=== PATIENT | female | born 1975 | race African-American/Black ===

== ENCOUNTER 2018-10-28 07:59 | Day surgery (SDC) | payer OTHER ==
[2018-10-15 15:33] LABS: Absolute Monocytes 0.2 K/uL (0.1-1.3); Absolute Neutrophil 0.9 K/uL (1.8-8.0); Basophils % 0.7 % (0-1.3); Eosinophils % 0.2 % (0-4.4); Hematocrit 32.3 % (36.0-45.0); Lymphocytes % 46.1 % (15.3-44.8); MPV 9.2 fL (7.6-11.3); Monocytes % 10.5 % (3.3-12.3); RBC Red Blood Cell Count 3.61 M/uL (3.86-4.86)
[2018-10-15 16:09] LABS: Blood Morphology Comment NOT SEEN (NOT SEEN); Platelet Estimate ADEQ
[2018-10-23 16:09] LABS: Absolute Lymphocytes (CBC) 1.2 K/uL (0.7-4.9); Absolute Monocytes 0.2 K/uL (0.1-1.3); Absolute Neutrophil 0.8 K/uL (1.8-8.0); Eosinophils % 0.3 % (0-4.4); Hematocrit 33.5 % (36.0-45.0); Lymphocytes % 52.5 % (15.3-44.8); MPV 9.1 fL (7.6-11.3); Monocytes % 11.1 % (3.3-12.3); RBC Red Blood Cell Count 3.75 M/uL (3.86-4.86)
[2018-10-23 17:31] LABS: Blood Morphology Comment NOT SEEN (NOT SEEN); Platelet Estimate ADEQ
[2018-10-28 08:16] LABS: Specific Gravity >= 1.030 (1.005-1.030)
[2018-10-28] MEDS ORDERED: Ringers Lactate 1,000 ML IV ONE ×2 (08:34→13:51)
[2018-10-28] MEDS ORDERED: CEFAZOLIN/SWI 1gm 1 GM/10 ML SYR ONE (08:35)
[2018-10-28 08:45] VITALS: O2SAT 100
[2018-10-28] MEDS ORDERED: PROPOFOL 200 MG/20 ML VIAL IV ONE (11:08)
[2018-10-28] MEDS ORDERED: FENTANYL CITR 100 MCG/2 ML ONE ×2 (11:08→13:49)
[2018-10-28] MEDS ORDERED: MIDAZOLAM HCL 2 MG/2 ML INJ ONE (11:09)
[2018-10-28] MEDS ORDERED: LIDOCAINE 2% MPF 5 ML VIAL ONE (11:10)
[2018-10-28] MEDS ORDERED: ONDANSETRON 4 MG/2 ML VIAL ONE ×2 (11:11→16:17)
[2018-10-28] MEDS ORDERED: ROCURONIUM 50 MG/5 ML VIAL IV ONE (11:12)
[2018-10-28] MEDS: CEFAZOLIN/SWI 1gm 1 GM/10 ML SYR ONE ×2 (11:53→11:55)
[2018-10-28] MEDS ORDERED: VASOPRESSIN 20 UNIT/ML VIAL ONE (12:08)
[2018-10-28] MEDS ORDERED: NEOSTIGMINE 1 MG/ML -10 ML VIAL ONE (14:14)
[2018-10-28] MEDS ORDERED: GLYCOPYRROLATE 0.2 MG/ML SYR ONE ×2 (14:14)
[2018-10-28] MEDS: HYDROMORPHONE HCL 1 MG/ML INJ ONE ×4 (14:52→15:21)
[2018-10-28 16:20] VITALS: TEMP 97.2
[2018-10-28] MEDS ORDERED: HYDROCODONE/APAP 5/325 MG TAB ONE (17:35)
[2018-10-28 18:13] VITALS: BP 101/66
--- NOTE | 2018-10-29 08:07 | OP ---
Date of Procedure: 10/28/2018 Surgeon: Radha Lafleur MD Compensation Manager: Theresa Magana. Preoperative Diagnoses: 1.Menorrhagia, excessive periods with . 2.Right ovarian mass 4.8 cm ad 3.2 cm. Two cysts that were measured a while ago and on repeat ultra sound, no cysts were seen. Desired permanent sterilization due to the fact that she is having an abl ation. Postoperative Diagnoses: 1.Menorrhagia, excessive periods with . 2.Right ovarian mass 4.8 cm ad 3.2 cm. Two cysts that were measured a while ago and on repeat ultra sound, no cysts were seen. Desired permanent sterilization due to the fact that she is having an abl ation. 3.Bilateral hematosalpinx and endometrioma on the left ovary. 4.Bilateral very dense tubo-ovarian adhesions, pelvic adhesions, adhesions of the uterus to the ante rior abdominal wall and to the omentum, and omental adhesions to the anterior abdominal wall. Procedures Performed: 1.Diagnostic hysteroscopy, endometrial ablation with Dyer ThermAblator (HTA). 2.Diagnostic laparoscopy, bilateral salpingectomy, bilateral ovariolysis and extensive lysis of adhe sions before the case was started. Estimated Blood Loss: Minimal. Specimens: Bilateral tubes, left ovary along with endometrioma. Complications: None. Drains: None. Condition: The patient's condition is stable. Findings: Bilateral hematosalpinx was visualized. There were dense bilateral ovarian adhesions to t he bowel, to the posterior wall of the uterus, and the posterior broad ligament, as well as to the po sterior cul-de-sac, lateral hamilton. All these adhesions of the ovary had to be released in order for me to dissect the tube off the ovary. On the left side, there appeared to be an endometrioma that wa s deep seated and after it was removed, the ovary on this side was bleeding at the level of the entry of the infundibulopelvic ligament , which is the main source of blood supply to the ovary, so the ovary on the left had to be removed. There was only a small amount of ovarian tissue left af ter the removal of the endometrioma. All adhesions of the uterus, posterior cul-de-sac, bowel, were all taken down. The omental adhesions were also taken down and the anatomy restored. The right ovary appeared to be completely unremarkable and intact, with blood supply intact as well, so it was left in place for hormonal function. After the patient was evaluated outpatient about 2 years ago, she was consented for an ablation. She had 2 ovarian cysts on the right side 4.8 cm and 3.2 cm, plan was to remove these. However, she had leukocytopenia and on further evaluation it took her to see Dr. Garcia, the back shoe operator as well as Dr Landry London who is her primary care provider. Finally after a year and a half, the patient came back w [facility] to proceed with the surgery as planned since she has become anemic since then due to her heavy bleeding. She had evaluation of the endometrium in the past, which was negative for (endometrial in traepithelial neoplasia) EIN or ESC (endometrial serous carcinoma). Her options were reviewed as a M shahla or ablation. Discussed about removal of the uterus per patient's request, but this was too inv asive before these two fail; that would not be advisable in the absence of any atypia or malignancy. The patient understood, a repeat ultrasound was performed, and the ovarian cyst on the right side amanda d resolved. The patient was then consented for an ablation. Understanding the benefits and risks an d risk of failure, also discussed about the need for permanent control in place. She had an ec topic for which she presumed that she had a left salpingectomy. However, she needed perman ent sterilization, as there was no ovary to have a vasectomy, so she wanted to proceed with a bilate ral tubal ligation and this was discussed with her and bilateral salpingectomy according to the guide lines for risk reduction of ovarian cancer was discussed and the patient was brought to the OR. Description Of Procedure: After informed consent was verified, the patient was brought to the OR, 2 g of Ancef were given preop. Then we made sure that the patient is positioned on the operating table in a supine fashion. General anesthesia was given. She was placed in a dorsal lithotomy position u [facility]. Arms were tucked by the side. The abdomen, vulva, vagina, and perineum were pr epped and draped in a sterile fashion. A Hoover was placed to drain the bladder. A speculum was place d to expose the cervix. Anterior lip was grasped with 2 Allis clamps. The cervical canal was entere d with the help of a hysteroscope with on top of it. After entry directly into the uterin e cavity, there was a tiny polyp that had been scraped off with the tip of the scope. The endometriu m appeared to be unremarkable. After the tip of the scope was centered in the uterine cavity, the Al lis was clipped onto the sheath. The posterior fornix was packed with 2 Ray-Tecs. The Morrow speculum was left in place. Cavity integrity test was done, and after this was passed, the HTA ablation cycl e was started and a complete heating cycle with 10 minute ablation cycle and 1.5 minute cooling cycle were conducted without any interruption or fluid loss. There was excellent ablation effect after th oroughly irrigating and suctioning the uterine cavity. Pictures were taken of the ablation site. On ce the cycle was completed ablated, pictures were taken. The Allis clamp was disengaged from the she ath. The scope was removed. Diagnostic VCare was introduced into the uterus. All the clamps were r emoved and the Ray-Tecs from the posterior fornix were removed. This area was then draped after a Fo barry was connected to a drainage bag. A 1 cm infraumbilical incision was made with a scalpel using the open laparoscopy technique. The fasc ia was incised, tagged with 0 Vicryl sutures. The S retractors placed into the peritoneal cavity. H asson was introduced. Site of entry was checked and was unremarkable. The patient was placed in Baron n[place] position. There were adhesions right inferior to the placement of the umbilical trocar al l the way down to the level of the bladder. Then adhesions were present at the sigmoid colon up to t he anterior abdominal wall. These were well visualized by placing in the left lower quadrant 5 mm po rt and a 5 mm camera through here. Then with the help of the LigaSure the adhesions were taken down f rom the left port as well as the right port through the center port, and once the entire omental adhe sions were taken down with the help of the bipolar LigaSure, then the rest of the adhesions from the sigmoid were taken down with the help of the LigaSure only with a cutting mode. Once these were rele ased, then thorough inspection of the pelvic cavity was conducted. No evidence of any cyst. However , bilateral hydrosalpinges were identified. The right 1 was completely matted together with the ovar y, whereas the left 1 had an endometrioma and it was extremely scarred. There was a distal salpingec lamar, however, the tube was still present and dilated, the right more than the left. . A 5-mm left lower quadrant and 5-mm suprapubic ports were placed under direct vision. All the adhesi ons were taken down systematically from the pelvic cavity. After the ovaries were released from the lateral wall, posterior broad ligament, uterus and sigmoid colon, normal anatomy was restored. Howev er, the hydrosalpinx on the right side was completely attached and the fimbriated end was clamped, so plan was to separate and create a plane between the mesovarian and the mesosalpinx. This was comple tely taken down with the help of the LigaSure. Once the entire tube was freed up, the tube was taken down on the left side and removed. At this point, the ovarian endometrioma was very obvious and was scarred, so a plan was made to dissect this off the lateral wall and once this was done, the ovarian cyst was removed with the help of the LigaSure as well as pickups. They were atraumatic. Once the entire cyst of the endometrioma was peeled off, there was very small amount of ovarian tissue left an d this was adherent to the mesosalpinx and the utero-ovarian ligament. The incision of the IP ligame nt was bleeding despite our efforts to cauterize this with bipolar. The best thing was to remove the entire ovarian tissue, so that there could be good hemostasis. Once the utero-ovarian ligament was taken down from medial to lateral, the ovarian pedicle was taken down, then the infundibulopelvic lig ament was taken down with the help of the LigaSure, cauterized x2 and removed. These were placed in t he anterior shelf, then on the opposite side, the tube was released and taken down with the help of t he LigaSure and the entire tube was dissected and kept in the anterior cul-de-sac. There was a small ovarian cyst on the right side that was also teased out for removal as a specimen. Once all these w ere placed in the anterior cul-de-sac, thorough irrigation and suction was performed. There was exce llent hemostasis. More than 50% of the case was taking down the adhesions the 10-mm camer a was changed to a 5. A 10-mm bag was placed. All specimens were placed in and removed. All trocar s were removed, gas was then desufflated. After thorough irrigation and suction were performed, no e vidence of any trauma on removing the trocar sites visibly. Then S retractors were placed after the Ubaldo was removed and the fascial edges were made sure that they were approximated properly with 0 V icryl stitches. The tagged sutures were tied on both ends to complete the closure. Subcutaneous 0 V icryl stitch was placed. The skin was closed with the help of interrupted 4-0 Vicryl. The patient w as cleaned up. Instrument, needle, and sponge counts were done and were correct at the end of the ca se. She was recovered from anesthesia and taken to PACU in stable condition. Tristan and Kiko were r emoved. She wished to go home the same day. VANITA/QUE Voice ID: [id number] Report ID: [id number]
== END 2018-10-28 18:10 | disposition home or self-care (01) ==
LOC: OR 07:59
PROVIDERS: ATTEND Obstetrics & Gynecology
PROC: 0UT14ZZ Resection of Left Ovary, Percutaneous Endoscopic Approach (ICD-10-PCS; 2018-10-28)
PROC: 0U5B8ZZ Destruction of Endometrium, Via Natural or Artificial Opening Endoscopic (ICD-10-PCS; 2018-10-28)
PROC: 0UT74ZZ Resection of Bilateral Fallopian Tubes, Percutaneous Endoscopic Approach (ICD-10-PCS; principal; 2018-10-28 10:30)
DX: N83.12 Corpus luteum cyst of left ovary (principal); N70.11 Chronic salpingitis; N73.6 Female pelvic peritoneal adhesions (postinfective); N92.0 Excessive and frequent menstruation with regular cycle; N83.6 Hematosalpinx; N80.1 Endometriosis of ovary; D64.9 Anemia, unspecified; I10 Essential (primary) hypertension; Z79.899 Other long term (current) drug therapy
CPT/HCPCS: 36415; 81025; 85025; 86850; 86900; 86901; 88305; J0690; J1170; J2250; J2405; J2704; J2710; J3010

== ENCOUNTER 2024-12-16 10:37 | Emergency (ER) | payer OTHER ==
[2024-12-16] MEDS ORDERED: METHYLPREDNISOLONE 125 MG INJ ONE (11:09)
[2024-12-16] MEDS ORDERED: IPRATROPIUM BROM 0.5MG/2.5ML ONE (11:09)
[2024-12-16] MEDS ORDERED: ALBUTEROL 2.5 MG/3 ML NEB SOL ONE (11:09)
[2024-12-16] MEDS ORDERED: KETOROLAC 30 MG/ML INJ ONE (11:09)
[2024-12-16 11:24] LABS: Absolute Lymphocytes (CBC) 0.7 K/uL (0.7-4.9); Absolute Monocytes 0.5 K/uL (0.1-1.3); Absolute Neutrophil 2.2 K/uL (1.8-8.0); Basophils % 0.6 % (0-1.3); Eosinophils % 0.6 % (0-4.4); Hematocrit 36.7 % (36.0-45.0); Hemoglobin 12.6 g/dL (12.0-15.0); Lymphocytes % 21.7 % (15.3-44.8); MCH 28.6 pg (27.0-35.0); MCHC 34.2 g/dL (32.0-36.0); MCV 83.4 fL (80-100); MPV 8.4 fL (7.6-11.3); Monocytes % 13.4 % (3.3-12.3); Neutrophils % 63.7 % (41.7-73.7); Nucleated Red Blood Cells % 0.1 % (0-0); Platelets 168 thou/uL (152-406); Red Cell Distribution Width 14.2 % (12.1-15.2)
[2024-12-16 11:44] LABS: ALT/SGPT 19 U/L (13-56); AST/SGOT 17 U/L (15-37); Albumin 3.7 g/dL (3.4-5.0); Albumin/Globulin Ratio 0.9 (1.1-1.8); Alkaline Phosphatase 64 U/L (45-117); Anion Gap 11.8 mEq/L (5.0-15.0); BUN Blood Urea Nitrogen 17 mg/dL (7-18); Bicarbonate 25 mEq/L (21-32); Bilirubin Total 0.2 mg/dL (0.2-1.0); Globulin 4.3 g/dL (2.3-3.5); Glomerular Filtration Rate 76 ml/min (=/>90); Glucose Level 82 mg/dL (74-106); NT PRO-BNP 49 pg/mL (<125); Potassium 3.8 mEq/L (3.5-5.1); Sodium Level 137 mEq/L (136-145)
[2024-12-16 11:56] LABS: Influenza A Ag Negative; Influenza B Ag Negative
[2024-12-16 11:57] LABS: SARS-CoV-2 Antigen Rapid Res Positive (Negative)
[2024-12-16 12:05] LABS: Bilirubin Direct < 0.2 mg/dL (0-0.2); Troponin High Sensitivity < 3.0 pg/mL (<58.9)
--- NOTE | 2024-12-16 12:25 | RAD REPORT ---
EXAMINATION: ONE VIEW CHEST XR CLINICAL INDICATION: Female, 49 years old.,DYSPNEA TECHNIQUE: Frontal chest projection is submitted. Examination is limited by patient positioning and t echnique. COMPARISON: No prior exam. FINDINGS: The lungs are well inflated and clear. No pneumothorax or sizable effusion. The heart is normal in s ize. Mediastinal contours are unremarkable. IMPRESSION: No acute intrathoracic abnormalities.
--- NOTE | 2024-12-16 12:39 | ER ---
Nurse's Notes [facility] Name: Therese Rojo Age: 49 yrs Sex: Female : 1975 Arrival Date: 12/16/2024 Time: 10:37 Bed 15 Private MD: Diagnosis: COVID-19 Presentation: 12/16 10:49 Chief complaint: Patient states: productive cough, SOB, congestion, chills, body aches, me1 back pain and BURIDCK. Pain level 8/10 that started Saturday. Denies fever. Coronavirus screen: Vaccine status: Patient reports being unvaccinated. Ebola Screen: No symptoms or risks identified at this time. Initial Sepsis Screen: Does the patient meet any 2 criteria? HR > 90 bpm. Does the patient have a suspected source of infection? No. Patient's initial sepsis screen is negative. Risk Assessment: Do you want to hurt yourself or someone else? Patient reports no desire to harm self or others. Onset of symptoms was December 13, 2024. 10:49 Method Of Arrival: Ambulatory co1 10:49 Acuity: ARMANDO 3 me1 Triage Assessment: 10:55 Headache History: The patient has had previous headaches and this one is similar to me1 previous episodes. General: Appears uncomfortable, ill, well groomed, well developed, well nourished, Behavior is calm, cooperative, appropriate for age. Pain: Complains of pain in head and back Pain does not radiate. Pain currently is 8 out of 10 on a pain scale. Quality of pain is described as sharp, Pain began 2-3 days ago. Is continuous. Pain: Also complains of shortness of breath. EENT: No signs and/or symptoms were reported regarding the EENT system. Neuro: Level of Consciousness is awake, alert, obeys commands, Oriented to person, place, time, situation, Appropriate for age. Neuro: Reports headache. Cardiovascular: Patient's skin is warm and dry. Respiratory: Reports shortness of breath on exertion Airway is patent Trachea midline Respiratory effort is even, unlabored, Respiratory pattern is regular, symmetrical. GI: No signs and/or symptoms were reported involving the gastrointestinal system. : No signs and/or symptoms were reported regarding the genitourinary system. Derm: Skin is intact, is healthy with good turgor, Skin is pink, warm \T\ dry. Musculoskeletal: No signs and/or symptoms reported regarding the musculoskeletal system. 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 - Infectious Disease History:: Denies. - Social history:: Smoking status: Patient denies any tobacco usage or history of. - Family history:: not pertinent. Screenin:33 [facility] ED Fall Risk Assessment (Adult) History of falling in the last 3 months, db including since admission No falls in past 3 months (0 pts) Confusion or Disorientation No (0 pts) Intoxicated or Sedated No (0 pts) Impaired Gait No (0 pts) Mobility Assist Device Used No (0 pt) Altered Elimination No (0 pt) Score/Fall Risk Level 0 - 2 = Low Risk Oriented to surroundings, Maintained a safe environment. Abuse screen: Denies threats or abuse. Denies injuries from another. Nutritional screening: No deficits noted. Tuberculosis screening: No symptoms or risk factors identified. Assessment: 11:18 Reassessment: Patient appears in no apparent distress at this time. Patient and/or db family updated on plan of care and expected duration. Pain level reassessed. Patient is alert, oriented x 3, equal unlabored respirations, skin warm/dry/pink. General: Appears in no apparent distress. comfortable, Behavior is calm, cooperative. Pain: Complains of pain in back and head. Neuro: Level of Consciousness is awake, alert, obeys commands, Oriented to person, place, time, situation. Respiratory: Airway is patent Respiratory effort is even, unlabored, Respiratory pattern is regular, symmetrical. Vital Signs: 10:49 BP 138 / 96; Pulse 97; Resp 17; Temp 98; Pulse Ox 100% ; Weight 84.82 kg; Height 5 ft. me1 3 in. ; Pain 8/10; 11:16 BP 124 / 79; Pulse 79; Resp 16; Pulse Ox 98% ; db 11:30 BP 124 / 79; Pulse 87; Resp 16; Pulse Ox 98% ; db 12:30 BP 138 / 86; Pulse 80; Resp 16; Temp 98.6; Pulse Ox 100% on R/A; dd2 10:49 Body Mass Index 33.13 (84.82 kg, 160.02 cm) me1 10:49 Pain Scale: Adult me1 ED Course: 10:40 Patient arrived in ED. mr 10:42 Lars Kirkland MD is Attending Physician. rt 10:52 Triage completed. me1 10:52 Arm band placed on Patient placed in waiting room. me1 11:04 Rita French, RN is Primary Nurse. db 11:15 COVID-19 Ag + Flu A+B Ag Sent. bc6 11:16 Basic Metabolic Panel Sent. bc6 11:16 CBC with Diff Sent. bc6 11:16 LFT's Sent. bc6 11:16 NT PRO-BNP Sent. bc6 11:16 Troponin HS Sent. bc6 11:16 Initial lab(s) drawn, by me, sent to lab. Inserted saline lock: 20 gauge in right bc6 antecubital area, using aseptic technique. Blood collected. Flushed with 10 mL NS. 11:33 Patient has correct armband on for positive identification. Bed in low position. Call db light in reach. Side rails up X 1. Pulse ox on. NIBP on. 12:03 XRAY Chest (1 view) In Process Unspecified. EDMS 13:10 Provided Education on: d/c education. dd2 13:10 No provider procedures requiring assistance completed. IV discontinued, intact, dd2 bleeding controlled, No redness/swelling at site. Pressure dressing applied. Administered Medications: 11:15 Drug: Ketorolac IVP 15 mg IVP once Route: IVP; Site: right antecubital; db 11:49 Follow up: Response: No adverse reaction db 11:16 Drug: MethylPrednisoLONE IVP 125 mg IVP once Route: IVP; Site: right antecubital; db 11:49 Follow up: Response: No adverse reaction db 11:16 Drug: Ipratropium Inhalation Aerosol 0.5 mg Inhalation once Route: Inhalation; db 11:49 Follow up: Response: No adverse reaction db 11:18 Drug: Albuterol Inhalation 2.5 mg Inhalation once Route: Inhalation; db 11:49 Follow up: Response: No adverse reaction db Medication: 13:11 VIS not applicable for this client. dd2 Outcome: 12:39 Discharge ordered by . rt 13:10 Discharged to home ambulatory, dd2 13:10 Condition: stable 13:10 Discharge instructions given to patient, family, Instructed on discharge instructions, follow up and referral plans. medication usage, Demonstrated understanding of instructions, follow-up care, medications, Prescriptions given X 3, 13:11 Patient left the ED. dd2 Signatures: Dispatcher [employer] EDME Therese Scales, Reg Reg mr Rita French, RN RN db Lars Kirkland MD MD rt Irina Maldonado 6 Liz Pineda RN RN me1 ANTHONY ENGLISH RN RN dd2 Corrections: (The following items were deleted from the chart) 10:54 10:49 Chief complaint: Patient states: productive cough, congestion, chills, body me1 aches, back pain and BURDICK. Pain level 8/10 that started Saturday. Denies fever me1
--- NOTE | 2024-12-16 12:39 | EDPHYS ---
Physician Documentation [facility] Name: Therese Rojo Age: 49 yrs Sex: Female : 1975 Arrival Date: 12/16/2024 Time: 10:37 Bed 15 Private MD: ED Physician Lars Kirkland HPI: 12/16 13:48 This 49 yrs old Black Female presents to ER via Ambulatory with complaints of Headache. rt 13:48 Patient presents to the ED with cough, congestion, headache, body aches, nausea since rt Saturday. She took some Vicks to no relief. States that her body aches worsened today prompting her to come for further evaluation. Symptoms are moderate in severity, no other aggravating or alleviating factors.. 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 - Infectious Disease History:: Denies. - Social history:: Smoking status: Patient denies any tobacco usage or history of. - Family history:: not pertinent. ROS: 13:48 Cardiovascular: Negative for chest pain, palpitations, and edema, rt 13:48 Constitutional: Positive for body aches, malaise, 13:48 Respiratory: Positive for cough, shortness of breath, 13:48 Abdomen/GI: Positive for nausea, Negative for abdominal pain, 13:48 Neuro: Positive for headache, Negative for altered mental status, Exam: 13:48 Constitutional: This is a well developed, well nourished patient who is awake, alert, rt and in no acute distress. Head/Face: Normocephalic, atraumatic. Chest/axilla: Normal chest wall appearance and motion. Nontender with no deformity. No lesions are appreciated. Cardiovascular: Regular rate and rhythm with a normal S1 and S2. No gallops, murmurs, or rubs. Normal PMI, no JVD. No pulse deficits. Abdomen/GI: Soft, non-tender, with normal bowel sounds. No distension or tympany. No guarding or rebound. No evidence of tenderness throughout. Skin: Warm, dry with normal turgor. Normal color with no rashes, no lesions, and no evidence of cellulitis. MS/ Extremity: Pulses equal, no cyanosis. Neurovascular intact. Full, normal range of motion. 13:48 ECG was reviewed by the Attending Physician. 13:48 Respiratory: Faint wheezes heard at the apex of both lungs, no crackles, lungs otherwise clear, no respiratory distress, Vital Signs: 10:49 BP 138 / 96; Pulse 97; Resp 17; Temp 98; Pulse Ox 100% ; Weight 84.82 kg; Height 5 ft. me1 3 in. ; Pain 8/10; 11:16 BP 124 / 79; Pulse 79; Resp 16; Pulse Ox 98% ; db 11:30 BP 124 / 79; Pulse 87; Resp 16; Pulse Ox 98% ; db 12:30 BP 138 / 86; Pulse 80; Resp 16; Temp 98.6; Pulse Ox 100% on R/A; dd2 10:49 Body Mass Index 33.13 (84.82 kg, 160.02 cm) me1 10:49 Pain Scale: Adult me1 MDM: 10:53 Medical Screening Exam initiated rt 13:48 Differential diagnosis: Pneumonia, bronchospasm, viral syndrome, flu, COVID. Data rt reviewed: vital signs, nurses notes, lab test result(s), EKG, radiologic studies. I considered the following discharge prescriptions or medication management in the emergency department Medications were administered in the Emergency Department. See MAR. Independent interpretation of the following test(s) in the Emergency Department X-Ray: My interpretation is No infiltrate seen on my interpretation of x-ray images. Care significantly affected by the following chronic conditions: Lupus. Counseling: I had a detailed discussion with the patient and/or guardian regarding the historical points, exam findings, and any diagnostic results supporting the discharge/admit diagnosis, lab results, radiology results, the need for outpatient follow up, to return to the emergency department if symptoms worsen or persist or if there are any questions or concerns that arise at home. Response to treatment: the patient's symptoms have markedly improved after treatment. 12/16 11:04 Order name: Basic Metabolic Panel; Complete Time: 12:06 rt 12/16 11:04 Order name: CBC with Diff; Complete Time: 12:06 rt 12/16 11:04 Order name: LFT's; Complete Time: 12:06 rt 12/16 11:04 Order name: NT PRO-BNP; Complete Time: 12:06 rt 12/16 11:04 Order name: Troponin HS; Complete Time: 12:06 rt 12/16 11:04 Order name: COVID-19 Ag + Flu A+B Ag; Complete Time: 12:06 rt 12/16 11:04 Order name: XRAY Chest (1 view); Complete Time: 12:28 rt 12/16 11:04 Order name: EKG; Complete Time: 11:05 rt 12/16 11:04 Order name: Cardiac monitoring; Complete Time: 11:16 rt 12/16 11:04 Order name: EKG - Nurse/Tech; Complete Time: 11:16 rt 12/16 11:04 Order name: IV Saline Lock; Complete Time: 11:15 rt 12/16 11:04 Order name: Labs collected and sent; Complete Time: 11:16 rt 12/16 11:04 Order name: O2 Per Protocol; Complete Time: 11:16 rt 12/16 11:04 Order name: O2 Sat Monitoring; Complete Time: 11:16 rt EC:48 Rate is 84 beats/min. Rhythm is regular, Normal Sinus Rhythm with No ectopy. QRS Edgard rt is Normal. MS interval is normal. QRS interval is normal. QT interval is normal. No Q waves. No ST changes noted. Interpreted by me. Administered Medications: 11:15 Drug: Ketorolac IVP 15 mg IVP once Route: IVP; Site: right antecubital; db 11:49 Follow up: Response: No adverse reaction db 11:16 Drug: MethylPrednisoLONE IVP 125 mg IVP once Route: IVP; Site: right antecubital; db 11:49 Follow up: Response: No adverse reaction db 11:16 Drug: Ipratropium Inhalation Aerosol 0.5 mg Inhalation once Route: Inhalation; db 11:49 Follow up: Response: No adverse reaction db 11:18 Drug: Albuterol Inhalation 2.5 mg Inhalation once Route: Inhalation; db 11:49 Follow up: Response: No adverse reaction db Disposition Summary: 12/16/24 12:39 Discharge Ordered Notes: Location: Home rt Problem: new rt Symptoms: have improved rt Condition: Stable rt Diagnosis - COVID-19 rt Followup: rt - With: Private Physician - When: 2 - 3 days - Reason: Discharge Instructions: - Discharge Summary Sheet rt - COVID-19 rt Forms: - Medication Reconciliation Form rt - Antibiotic Education rt - Prescription Opioid Use rt - Patient Portal Instructions rt - Leadership Thank You Letter rt Prescriptions: - albuterol sulfate 90 mcg/actuation Inhalation HFA Aerosol Inhaler - inhale 3 puff INHALATION route every 4 to 6 hours as needed for shortness of rt breath or wheezing; 2 Each; Refills: 0, Product Selection Permitted - ondansetron 4 mg Oral Tablet,disintegrating - take 1 tablet ORAL route every 6 hours; 15 tablet; Refills: 0, Product rt Selection Permitted - Prednisone 20 mg Oral Tablet - take 2 tablets ORAL route once daily for 5 days; 10 tablet; Refills: 0, Product rt Selection Permitted Signatures: Dispatcher [employer] Rita Gooden RN RN db Lars Kirkland MD MD rt Liz Pineda RN RN me1
[2024-12-16 17:05] VITALS: BP 178/107; TEMP 98.1; O2SAT 96
--- NOTE | 2024-12-17 11:43 | EKG ---
Test Date: 2024-12-16 Test Time: 11:43:28 [employer]ographic Information System Analyst: LLOYD MEASUREMENT RESULTS: Intervals: Rate: 84 [place]: 146 QRSD: 72 QT: 322 QTc: 380 [place]: P: -5 [place]: 146 QRS: 7 T: 1 INTERPRETIVE STATEMENTS: Normal sinus rhythm Low voltage QRS Possible Inferior infarct, age undetermined Abnormal ECG No previous ECG available for comparison Electronically Signed On 12-17-24 11:40:02 CDT by Merritt Pizano
== END 2024-12-16 13:11 | disposition home or self-care (01) ==
LOC: ER 10:37
DX: U07.1 COVID-19 (principal)
CPT/HCPCS: 93005; 85025; 80048; 36415; 80076; 84484; 83880; 71045; 96375; 96374; 99285; 87428; J7613; J7644; J2919